=== PATIENT | female | born 1960 | race Caucasian/White ===

== ENCOUNTER 2016-03-07 05:27 | Inpatient (IN) | payer OTHER ==
[2016-02-20 13:13] VITALS: BMI 40.0
--- NOTE | 2016-02-20 13:42 | PAT Medication Instructions ---
Service Date Feb 20, 2016. Current Home Medication List Diclofenac (Voltaren), 50 MG PO BID Fluticasone Propionate (Nasal) (Flonase Allergy Relief), 1 SPRAY ZUNILDA QAM Gabapentin (Neurontin), 300 MG PO TID Ipratropium-Albuterol (Combivent Respimat), 1 PUFFS INH QID Mirtazapine (Remeron), 30 MG PO HS Pantoprazole (Protonix), 40 MG PO QAM Pravastatin (Pravachol ), 20 MG PO QPM Venlafaxine Hcl (Venlafaxine Hcl Er), 1 TAB PO HS Zolpidem Tartrate (Ambien), 10 MG PO HS Medication Instructions For Your Scheduled Surgery - Hold the following medications the morning of surgery: Diclofenac (Voltaren), 50 MG PO BID (otherwise okay to continue per surgeon) - Take the following medications the morning of surgery with a sip of water OTHERWISE NOTHING TO EAT OR DRINK AFTER MIDNIGHT: Fluticasone Propionate (Nasal) (Flonase Allergy Relief), 1 SPRAY ZUNILDA QAM Pantoprazole (Protonix), 40 MG PO QAM Gabapentin (Neurontin), 300 MG PO TID Ipratropium-Albuterol (Combivent Respimat), 1 PUFFS INH QID - Take the following medications as scheduled the night before surgery: Mirtazapine (Remeron), 30 MG PO HS Pravastatin (Pravachol ), 20 MG PO QPM Venlafaxine Hcl (Venlafaxine Hcl Er), 1 TAB PO HS Zolpidem Tartrate (Ambien), 10 MG PO HS Diclofenac (Voltaren), 50 MG PO BID Gabapentin (Neurontin), 300 MG PO TID Ipratropium-Albuterol (Combivent Respimat), 1 PUFFS INH QID If you have any questions please call us at [phone] (Ann Lawson PA-C) or [phone] or [phone]
[2016-02-20 14:28] LABS: BASO % 0.4 %; BASO ABS # 0.05 K/uL (0-0.2); COMPLETE YES; EOS % 2.5 %; HEMATOCRIT 43.6 % (37-47); IG% 0.3 %; LYMPH % 22.1 %; LYMPH ABS # 2.53 K/uL (1.2-3.4); MEAN CELL VOLUME 89.5 fL (80-100); MEAN CORPUSCULAR HEMOGLOBIN 30.2 pg (25-34); MEAN CORPUSCULAR HGB CONC 33.7 g/dl (32-36); MEAN PLATELET VOLUME 9.9 fL (7.4-10.4); MONO % 5.1 %; NEUT % 69.6 %; PLATELET COUNT 325 K/uL (130-400); RED BLOOD COUNT 4.87 M/uL (4.2-5.4); WHITE BLOOD COUNT 11.44 K/uL (4.8-10.8)
--- NOTE | 2016-02-20 14:35 | DIAGNOSTIC IMAGING REPORT ---
CHEST PREADMISSION(PA/LAT) HISTORY: Preop. COMPARISON: None. FINDINGS: The lungs are clear. Cardiac silhouette is normal in size. No pleural effusions. No pneumothorax. IMPRESSION: No acute process. Electronically signed by: Riley Walter M.D. 02/20/2016 2:33 PM
[2016-02-20 14:46] LABS: URINE APPEARANCE CLOUDY (CLEAR); URINE BILIRUBIN NEG (NEG); URINE COLOR DK YELLOW; URINE EPITHELIAL CELL AUTO >30 /lpf (0-5); URINE NITRITE NEG (NEG); URINE SPECIFIC GRAVITY 1.024 (1.000-1.030); UROBILINOGEN NEG (NEG)
[2016-02-20 14:50] LABS: MANUAL MICROSCOPIC REQUIRED? NO; REVIEW REQ? YES
[2016-02-20 15:29] LABS: CALCIUM 9.7 mg/dl (8.5-10.1); CREATININE 0.87 mg/dl (0.60-1.20); POTASSIUM 4.7 mmol/L (3.5-5.1)
[~2016-03-07] VITALS: Ht 157.5 cm; Wt 100.2 kg
[2016-03-07] VITALS (12 sets, daily range): BP systolic 108–145; BP diastolic 69–92; PULSE 83–93; TEMP 36.6–37.1; O2SAT 91–96; Ht 157.5 cm; Wt 100.2 kg
[~2016-03-07 05:27] MED LIST: DICL50TA3 PO; FLUT0.15 NAE; GABA-113 PO; IPRA1AER2 INH; MIRT30TA3 PO; PANT40TA PO; PRAV20TA PO; VENL150T33 PO; ZOLP10TA PO
[2016-03-07] MEDS ORDERED: CEFAZOLIN 2000 MG/60 ML D5W IV SCH (06:00)
[2016-03-07] MEDS ORDERED: LACTATED RINGER'S 1000ML 1,000 ML IV SCH (06:00)
[2016-03-07] MEDS ORDERED: PROPOFOL IV EMULSION 10 MG/ML 20 ML VIAL IV ONE (07:03)
[2016-03-07] MEDS ORDERED: LIDOCAINE HCL 2% 2 ML VIAL (20MG/ML) ONE (07:03)
[2016-03-07] MEDS ORDERED: MIDAZOLAM HCL 1 MG/ML 2ML VIAL ONE (07:03)
[2016-03-07] MEDS ORDERED: EpHEDrine SULFATE INJ 50 MG/ML AMP ONE (07:03)
[2016-03-07] MEDS ORDERED: GLYCOPYRROLATE INJ 0.2 MG/ML VIAL ONE (07:03)
[2016-03-07] MEDS ORDERED: SUCCINYLCHOLINE CHLORIDE 20 MG/ML 10 ML VIAL IV ONE (07:03)
[2016-03-07] MEDS ORDERED: ROCURONIUM BROMIDE 10 MG/ML 5 ML VIAL ONE (07:03)
[2016-03-07] MEDS ORDERED: NEOSTIGMINE METHYLSULFATE 1 MG/ML 10ML VIAL ONE (07:03)
[2016-03-07] MEDS ORDERED: FENTANYL CITRATE INJ 50 MCG/1 ML 2 ML VIAL ONE (07:03)
[2016-03-07] MEDS ORDERED: ONDANSETRON INJ 2 MG/ML 2 ML VIAL ONE (07:03)
[2016-03-07] MEDS ORDERED: DEXAMETHASONE SOD INJ 4 MG/ML VIAL ONE (07:03)
[2016-03-07] MEDS ORDERED: EpHEDrine SULFATE INJ 50 MG/ML AMP IV PRN (07:30)
[2016-03-07] MEDS ORDERED: ATROPINE SULFATE 0.1 MG/ML 5ML SYR IV PRN (07:30)
[2016-03-07] MEDS ORDERED: ONDANSETRON INJ 2 MG/ML 2 ML VIAL IV PRN ×2 (07:30→09:45)
[2016-03-07] MEDS ORDERED: HYDROmorphone INJ 2 MG/ML SYR/VIAL IV PRN (07:30)
[2016-03-07] MEDS ORDERED: PHENYLEPHRINE 100MCG/ML 5ML SYR IV PRN (07:30)
--- NOTE | 2016-03-07 07:33 | History & Physical Bridge Note ---
H&P Re-Evaluation Bridge Note: I have examined the patient, reviewed the History & Physical and in the interval since the performance of the History & Physical I have noted the following changes of clinical significance: No changes noted
--- NOTE | 2016-03-07 07:34 | History and Physical ---
History & Physical Date Mar 07, 2016. Chief Complaint back and leg pain History of Present Illness The patient is a 55 year old female with complaints of Additional History Hepatic Disease: No Endocrine Disorder: No Kidney Disease: No Hypertension: No Heart Disease: No Bleeding Tendencies: No Infectious Diseases: No Allergies Coded Allergies: No Known Allergies (Unverified , 03/07/16) Home Medications Scheduled Diclofenac (Voltaren), 50 MG PO BID Fluticasone Propionate (Nasal) (Flonase Allergy Relief), 1 SPRAY ZUNILDA QAM Gabapentin (Neurontin), 300 MG PO TID Ipratropium-Albuterol (Combivent Respimat), 1 PUFFS INH QID Mirtazapine (Remeron), 30 MG PO HS Pantoprazole (Protonix), 40 MG PO QAM Pravastatin (Pravachol ), 20 MG PO QPM Venlafaxine Hcl (Venlafaxine Hcl Er), 1 TAB PO HS Zolpidem Tartrate (Ambien), 10 MG PO HS Physical Examination Skin: warm/dry, no rash Eyes: normal inspection, EOMI, sclerae normal ENT: normal ENT inspection, pharynx normal Head: normocephalic, atraumatic Neck: supple, no adenopathy, trachea midline Respiratory/Chest: lungs clear, normal breath sounds, no respiratory distress Cardiovascular: regular rate, rhythm, no edema, no murmur Abdomen / GI: normal bowel sounds, non tender Back: normal inspection Extremities: normal inspection, normal range of motion Neurologic/Psych: no motor/sensory deficits, alert, normal reflexes, oriented x 3 Diagnosis spinal stenosis Plan of Treatment decompression fusion L3-S1
[2016-03-07] MEDS ORDERED: HYDROmorphone INJ 2 MG/ML SYR/VIAL ONE (08:14)
[2016-03-07] MEDS ORDERED: BUPIVACAINE/EPINEPHRINE 0.5% MPF 1:200,000 30 ML VIAL INJ ONE (08:21)
[2016-03-07] MEDS ORDERED: PHENYLEPHRINE HCL INJ 10 MG/ML VIAL ONE (09:09)
[2016-03-07] MEDS ORDERED: FLOSEAL HEMOSTATIC MATRIX 10ML TOP ONE (09:33)
[2016-03-07] MEDS ORDERED: BACITRACIN 50000 UNIT VIAL IR ONE (09:33)
[2016-03-07] MEDS ORDERED: SODIUM CHLORIDE 0.9% 1000ML 1,000 ML IV SCH (09:44)
--- NOTE | 2016-03-07 09:44 | [facility] Post Operative Brief Note ---
Immediate Operative Summary Operative Date Mar 07, 2016. Pre-Operative Diagnosis Spinal Stenosis Post-Operative Diagnosis Spinal Stenosis Procedure(s) Performed L3-L5 Lumbar Laminectomy, Decompression; Pedicle Screw Fixation; Placement of Interbody Device L4-L5, Posterolateral Fusion; Application of Kajal and Bone Morphogenetic Protein Surgeon Dr. Holm Heel Scourer Surgeon(s) NOHEMI Bain Estimated Blood Loss 180 ml Findings stenosis Specimens none per surgeon
[2016-03-07] MEDS ORDERED: NALOXONE HCL 0.4 MG/1 ML VIAL/CARP IV PRN ×2 (09:45)
[2016-03-07] MEDS ORDERED: hydrOXYzine HCL 25 MG TAB PO PRN (09:45)
[2016-03-07] MEDS ORDERED: FAMOTIDINE 20 MG TAB PO PRN (09:45)
[2016-03-07] MEDS ORDERED: ACETAMINOPHEN IV 100 ML IV PRN (09:45)
[2016-03-07] MEDS ORDERED: HYDROmorphone HCL 0.5MG/ML 50 ML CASSETTE IV PRN (09:45)
[2016-03-07] MEDS ORDERED: LORAZEPAM INJ 0.5 MG in SYRINGE 0.75 ML IV PRN (09:45)
[2016-03-07] MEDS ORDERED: SOD PHOSPHATE/SOD BIPHOSPHATE ENEMA 132 ML BTL PR PRN (09:45)
[2016-03-07] MEDS ORDERED: PROMETHAZINE HCL INJ 12.5 MG in SODIUM CHLORIDE 0.9% 50ML 50 ML IV PRN (09:45)
[2016-03-07] MEDS ORDERED: BISACODYL 10 MG SUPP PR PRN (09:45)
[2016-03-07] MEDS ORDERED: ACETAMINOPHEN 500 MG TAB PO PRN (09:45)
[2016-03-07] MEDS ORDERED: METOCLOPRAMIDE HCL INJ 5 MG/ML 2 ML VIAL IV PRN (09:45)
[2016-03-07] MEDS ORDERED: DO NOT ADMINISTER PNEUMOCOCCAL VACCINE PRN ×2 (09:45)
[2016-03-07] MEDS ORDERED: MAGNESIUM HYDROXIDE SUSP 30 ML UDC PO PRN (09:45)
[2016-03-07] MEDS ORDERED: ALUMINUM/MAGNESIUM SUSP 30 ML UDC PO PRN (09:45)
[2016-03-07] MEDS ORDERED: DO NOT ADMINISTER FLU VACCINE PRN ×3 (09:45)
--- NOTE | 2016-03-07 09:49 | DIAGNOSTIC IMAGING REPORT ---
INTRAOPERATIVE FLUOROSCOPIC IMAGES OF THE LUMBAR SPINE CLINICAL HISTORY: L3-L5 laminectomy and fusion. COMPARISON STUDY: No previous studies for comparison. FLUOROSCOPY TIME: 18 seconds. FINDINGS: These images demonstrate an L4-L5 discectomy with interbody spacer placement. There is a posterior decompression. Bilateral pedicle screws are noted at the L3, L4 and L5 levels. There are interconnecting rods. IMPRESSION: Expected findings following L4-L5 discectomy and L3-L5 bilateral pedicle screw fusion with decompression. Electronically signed by: Andres Gilmore M.D. 03/07/2016 9:47 AM Dictated Date/Time: 03/07/2016 9:45 AM
[2016-03-07] MEDS ORDERED: HYDROmorphone HCL 0.5MG/ML 50 ML CASSETTE ONE (10:17)
--- NOTE | 2016-03-07 10:47 | OPERATIVE REPORT ---
DATE OF OPERATION: 03/07/2016 PREOPERATIVE DIAGNOSIS: Spinal stenosis. Spondylolisthesis. POSTOPERATIVE DIAGNOSIS: Same. PROCEDURE PERFORMED: 1. Lumbar decompression, medial facetectomy and foraminotomy L2-3, L3-4, L4-5, L5-S1. 2. Posterior spinal fusion L3-L4, L4-L5. 3. Placement posterior instrumentation using Orthros rods and screws and crosslink L3-L4, L4-L5. 4. Interbody fusion L4-L5. 5. Placement of PEEK cage 12 x 22 at L4-L5. 6. Placement of locally harvested morselized autograft posterior gutters. 7. Placement of Infuse collagen sponge combined with Mastergraft in posterior gutters and Kajal bone grafting in the interbody space. SURGEON: Dr. Marty Holm. PROOF COIN COLLECTOR: George Ramos PA-C. Due to the complex nature of the procedure, the entire surgery was performed with the environmental services assistant of NOHEMI Patel. The mortgage assistant, under direct supervision, was involved in the actual performance of all aspects of the surgical procedure including hemostasis, tissue retraction and incision, instrument management, patient positioning, and wound closure. ANESTHESIA: General. DISPOSITION: The patient awakened and taken to PACU in stable condition. HISTORY OF PATIENT'S PROBLEMS: This is a 55-year-old female that presents with above-mentioned diagnosis. After failing an extensive course of nonoperative care, elected to undergo the above-mentioned procedure. Risks, benefits, pros, cons, and alternatives were outlined in detail preoperatively. OPERATION AND FINDINGS: PROCEDURE: The patient was met preoperatively, case discussed and all questions were addressed. At that point the patient was taken back to operative suite and after undergoing successful general intubation by the department of anesthesia was placed in prone position on Víctor table atop Juan M frame. All bony prominences were padded and the eyes were inspected to ensure there was no external pressure placed upon them. At this point, lumbar spine was prepped and draped in normal sterile fashion. Sharp dissection with the assistance of Bovie cautery performed down to and exposing the lamina and transverse processes of L3, L4, L5 bilaterally. From a caudal to cephalad fashion, complete laminectomy of L4, 3 partial laminectomy of L2 was performed at we addressed severe lateral recess stenosis at the 2-3, 3-4 and 4-5 levels. Pedicle screws then placed in L3, L4, L5 bilaterally with assistance of fluoroscopy and appropriate size vandana provisionally placed. Through a transforaminal approach on the right, a complete discectomy of L4-L5 was performed, endplates curetted to subcortical bleeding bone and a 12 x 26 mm PEEK cage filled with Kajal bone grafting tapped into position. The rods were then compressed, locked into final position bilaterally including a crosslink. The transverse processes of 3, 4 and 5 burred to subcortical bleeding bone. Infuse collagen sponge combined with Mastergraft locally harvested morcellized autograft was placed in the posterior gutters. A 7 flat ANNMARIE drain was inserted. Incision was closed with 1-0 Vicryl in the fascia, 2-0 Vicryl subcutaneously, 4-0 Monocryl for final skin closure. Steri-Strips and sterile dressing placed. The patient was awakened and taken to PACU in stable condition. I attest to the content of the Intraoperative Record and any orders documented therein. Any exceptio ns are noted below.
--- NOTE | 2016-03-07 11:06 | Anesthesiology Progress Note ---
Anesthesia Post Op Note Date & Time Mar 07, 2016 at 11:05 Vital Signs Pain Intensity: 2 Vital Signs Past 12 Hours Date Time Temp Pulse Resp B/P Pulse Ox O2 Delivery O2 Flow Rate FiO2 03/07/16 10:51 92 18 96 03/07/16 10:51 93 03/07/16 10:49 149/87 03/07/16 10:46 94 19 03/07/16 10:46 94 19 92 03/07/16 10:45 36.4 03/07/16 10:40 94 20 03/07/16 10:40 94 20 94 03/07/16 10:38 159/91 03/07/16 10:35 92 16 03/07/16 10:35 91 16 93 03/07/16 10:34 169/86 03/07/16 10:30 94 15 94 03/07/16 10:30 93 15 03/07/16 10:28 156/94 03/07/16 10:25 89 16 176/87 95 03/07/16 10:25 89 16 03/07/16 10:22 135/61 03/07/16 10:20 85 11 03/07/16 10:20 85 11 96 03/07/16 10:19 181/106 03/07/16 10:15 88 10 170/97 94 03/07/16 10:15 88 10 03/07/16 10:10 36.5 86 18 170/97 94 Mask 10 03/07/16 06:12 96 Room Air 03/07/16 06:07 36.8 85 18 145/92 Notes Mental Status: alert / awake / arousable, participated in evaluation Pt Amnestic to Procedure: Yes Nausea / Vomiting: adequately controlled Pain: adequately controlled Airway Patency, RR, SpO2: stable & adequate BP & HR: stable & adequate Hydration State: stable & adequate Anesthetic Complications: no major complications apparent
[2016-03-07] MEDS ORDERED: PNEUMOCOCCAL ADMINISTRATION CHARGE ONE (12:45)
[2016-03-07] MEDS ORDERED: INFLUENZA VIRUS QUAD VACCINE 0.5 ML SYR IM. ONE (12:45)
[2016-03-07] MEDS ORDERED: PNEUMOCOCCAL POLYSACCHARIDES 25 MCG/0.5 ML VIAL/SYR IM. ONE (12:45)
[2016-03-07] MEDS ORDERED: INFLUENZA ADMINISTRATION CHARGE ONE (12:45)
[2016-03-07] MEDS: IPRATROPIUM BROMIDE/ALBUTEROL respimat INH INH SCH ×3 (13:00→20:43)
[2016-03-07] MEDS ORDERED: RXC5 PO (13:22)
--- NOTE | 2016-03-07 13:23 | Discharge Instructions ---
Discharge Instructions Admission Reason for Admission: Spinal Stenosis Discharge Discharge Diagnosis / Problem: stenosis Discharge Goals Goal(s): Improve function Activity Recommendations Activity Limitations: per Instructions/Follow-up section . Instructions / Follow-Up Instructions / Follow-Up ACTIVITY RECOMMENDATIONS: SELF CARE INSTRUCTIONS AFTER THORACIC/LUMBAR FUSIONS 1. You may walk to your tolerance. It is good exercise for your legs and back. Expect some back and intermittent leg aches and pains. 2. You may perform "counter-top" level activities (make a sandwich, jackeline with a project, etc.). 3. No bending or lifting of more than 10 pounds or back twisting of any nature (roll like a log when turning in bed). 4. You may ride in a car for 20-30 minutes at a time. No driving until after your first visit with your doctor. 5. Frequent changes of position and restricting sitting to 30 minutes at a time will help limit the amount of back spasms and stiffness you may experience. 6. You may discontinue the use of ambulatory aids (cane, crutches, etc.) once your strength and confidence allow. 7. You may field artillery targeting technician the shower and let water strike your incision when you arrive home at least once daily. Do not take a tub bath, sit in a hot tub or go into a swimming pool until after your first recheck in the office. SPECIAL CARE INSTRUCTIONS: VERY IMPORTANT TO READ AND REVIEW A. Your surgical incision has been closed with a cosmetic suture under the skin that will dissolve in about 6 weeks. In 14 days, you can use a pair of clean scissors and cut the suture that is left outside of the skin at the ends of your incision. 1. The small skin tapes can be removed 7 days after surgery if they have not fallen off by that point. 2. You may keep the wound open to air as much as possible to promote healing after post-op day number 5 unless told otherwise by your doctor. 3. If you think the wound looks like it is becoming infected (redness or worsening drainage) and/or you are experiencing fever, chill or worsening back pain and muscle spasms, contact the office so that we may evaluate you as soon as possible. B. Complications are uncommon, but please contact us if you have any signs or symptoms of: 1. wound infection (fever higher than 102.5 degrees F, redness, separation of wound, drainage, or increasing pain from the incision) 2. blood clots in legs (pain, swelling, redness and warmth in legs) 3. urinary tract infection (fever higher than 102.5 degrees F, burning upon urination or increased frequency of urination) 4. nerve problems (inability to walk on your toes or heels, numbness, loss of bowel or bladder control) 5. any other symptoms that concern you C. Please call the office at if you have any concerns or questions about your operation or recovery. D. No smoking! Smoking drastically decreases the chance of a solid fusion. E. Do not take any anti-inflammatory medications (Indocin, Advil, Motrin, Aspirin, Naprosyn, etc.) as these may inhibit the chance of a solid fusion. Tylenol is okay to take for pain. MANAGING PAIN AFTER SPINAL SURGERY 1. Narcotic medication is intended for short-term use and will be provided for surgical pain. Surgical pain usually lasts for a period of 4-6 weeks. Narcotic medication includes Percocet, Vicodin, Darvocet, Tylenol #3 or Lortab. 2. Longer-term pain is more appropriately treated with non-narcotic medication such as Tylenol ES. 3. Muscle spasm is not appropriately treated with narcotics. Muscle relaxers such as Soma, Flexeril or Skelaxin can be used along with Tylenol ES. 4. Remember that we all live with some "aches and pains". This is not unusual or uncommon after an injury or as we get older. a. Back pain is expected and may include muscle spasms for 4 to 6 weeks after surgery. The pain should gradually improve. If the pain worsens for no apparent reason, please contact the office. b. Intermittent leg pain may also be experienced and should not be concerned about unless it worsens for no apparent reason. If so, please contact the office. 5. We will provide appropriate medication within the normal guidelines of their prescribed use. We will also be very cautious and aware of potential abuse and extended duration of patients' medication needs. a. Pain medications are for your comfort and to assist with sleep and rest so that the tissue can heal. They are not provided in order to return to normal activity and should not be used through the day. To do so or worsening pain at night can result from ongoing tissue damage and development of tolerance to the prescribed medicine. 6. Please allow 2-3 days to process refills. Prescriptions will not be mailed but must be picked up at the office. FOLLOW UP VISIT: Keep your scheduled follow-up appointment. Any questions, please call the office at . Current Hospital Diet Patient's current hospital diet: Regular Diet Discharge Diet Recommended Diet: Regular Diet Procedures Procedures Performed: L3-L5 Lumbar Laminectomy, Decompression; Pedicle Screw Fixation; Placement of Interbody Device L4-L5, Posterolateral Fusion; Application of Kajal and Bone Morphogenetic Protein Pending Studies Studies pending at discharge: no Medical Emergencies . Who to Call and When: Medical Emergencies: If at any time you feel your situation is an emergency, please call 911 immediately. . Non-Emergent Contact Non-Emergency issues call your: Primary Care Provider . "Provider Documentation" section prepared by Marty Holm. VTE Core Measure Inpt VTE Proph given/why not?: Valeriano Rodriguez, SCD's
[2016-03-07] MEDS: GABAPENTIN 300 MG CAP PO SCH ×2 (14:23→20:44)
[2016-03-07] MEDS: CEFAZOLIN IV 2,000 MG in DEXTROSE 5% 50ML 50 ML IV SCH ×2 (17:02→23:33)
[2016-03-07] MEDS: LACTATED RINGER'S 1000ML 1,000 ML IV SCH ×2 (17:03→23:33)
[2016-03-07] MEDS: DEXAMETHASONE INJ 6 MG in SYRINGE 0 ML IV SCH ×2 (17:03→23:33)
[2016-03-07] MEDS: VENLAFAXINE HCL XR 150 MG CAPXR PO SCH (20:44)
[2016-03-07] MEDS: PRAVASTATIN SOD 20 MG TAB PO SCH (20:44)
[2016-03-07] MEDS: DOCUSATE SODIUM/SENNA 50/8.6MG TAB PO SCH (20:44)
[2016-03-07] MEDS: MIRTAZAPINE TAB 15 MG TAB PO SCH (20:44)
[2016-03-07] MEDS: ZOLPIDEM TARTRATE 10 MG TAB PO SCH (20:44)
[2016-03-08] VITALS (8 sets, daily range): BP systolic 112–148; BP diastolic 68–84; PULSE 75–100; TEMP 36.9–37.2; O2SAT 86–97
[2016-03-08] MEDS: IPRATROPIUM BROMIDE/ALBUTEROL respimat INH INH SCH ×5 (01:46→20:46)
[2016-03-08] MEDS ORDERED: SODIUM CHLORIDE 0.65% NA SOLN 45 ML (OCEAN) ONE (02:54)
[2016-03-08] MEDS ORDERED: NURSING DECISION MEDICATION ORDER SCH (05:30)
[2016-03-08] MEDS ORDERED: DC PCA ONE (06:00)
[2016-03-08 06:04] LABS: BASO % 0.1 %; BASO ABS # 0.01 K/uL (0-0.2); COMPLETE YES; IG% 0.4 %; LYMPH % 6.6 %; LYMPH ABS # 1.19 K/uL (1.2-3.4); MEAN CELL VOLUME 89.5 fL (80-100); MEAN CORPUSCULAR HEMOGLOBIN 29.4 pg (25-34); MEAN CORPUSCULAR HGB CONC 32.9 g/dl (32-36); MEAN PLATELET VOLUME 9.6 fL (7.4-10.4); MONO % 5.7 %; NEUT % 87.2 %; PLATELET COUNT 335 K/uL (130-400); RED BLOOD COUNT 3.91 M/uL (4.2-5.4); WHITE BLOOD COUNT 17.98 K/uL (4.8-10.8)
[2016-03-08] MEDS: OXYCODONE HCL IR 5 MG TAB (IMMEDIATE RELEASE) PO PRN ×5 (06:30→22:54)
[2016-03-08 06:36] LABS: BUN/CREATININE RATIO 9.6 (10-20); CALCIUM 8.8 mg/dl (8.5-10.1); CREATININE 0.85 mg/dl (0.60-1.20); POTASSIUM 4.3 mmol/L (3.5-5.1)
[2016-03-08] MEDS ORDERED: ALBUT/IPRATROP 3MG/0.5MG NEB 3 ML VIAL INH SCH (07:30)
[2016-03-08] MEDS: HYDROmorphone INJ 1 MG/ML SYR IV PRN ×4 (07:44→22:10)
[2016-03-08] MEDS: DEXAMETHASONE INJ 6 MG in SYRINGE 0 ML IV SCH (09:15)
[2016-03-08] MEDS: MoRPHine SULFATE CR 15 MG TAB (MS CONTIN) PO SCH ×2 (09:15→20:45)
[2016-03-08] MEDS: GABAPENTIN 300 MG CAP PO SCH ×3 (09:16→20:45)
[2016-03-08] MEDS: PANTOprazole SOD 40 MG TAB PO SCH (09:16)
--- NOTE | 2016-03-08 09:49 | PROGRESS NOTE ---
DATE: 03/08/2016 DATE: 03/08/2016. SUBJECTIVE: Postop day 1. Back pain controlled. Leg pain improved. Vital signs stable. T-max 37.1. ANNMARIE drained 70 mL. Hematocrit this a.m. is 35.0. OBJECTIVE: On exam the patient is in chair at bedside. Demonstrates good strength to testing. Appears comfortable. ASSESSMENT: Status post lumbar decompression and fusion. PLAN: At this time, will initiate physical therapy, advance her bowel regimen and anticipate discharge home Thursday to [facility] if possible.
[2016-03-08] MEDS ORDERED: NURSING VERBAL MED ORDER ONE (13:00)
[2016-03-08] MEDS: NICOTINE 21 MG/24 HR TDSY TD SCH (13:31)
[2016-03-08] MEDS: ALBUT/IPRATROP 3MG/0.5MG NEB 3 ML VIAL INH PRN ×2 (16:12→23:57)
[2016-03-08] MEDS: DOCUSATE SODIUM/SENNA 50/8.6MG TAB PO SCH (20:45)
[2016-03-08] MEDS: PRAVASTATIN SOD 20 MG TAB PO SCH (20:45)
[2016-03-08] MEDS: VENLAFAXINE HCL XR 150 MG CAPXR PO SCH (20:45)
[2016-03-08] MEDS: MIRTAZAPINE TAB 15 MG TAB PO SCH (20:46)
[2016-03-08] MEDS: ZOLPIDEM TARTRATE 10 MG TAB PO SCH (20:48)
[2016-03-08] MEDS: LORAZEPAM 0.5 MG TAB PO PRN (22:53)
[2016-03-09] MEDS: HYDROmorphone INJ 1 MG/ML SYR IV PRN ×4 (02:12→16:08)
[2016-03-09] MEDS: IPRATROPIUM BROMIDE/ALBUTEROL respimat INH INH SCH ×4 (04:55→20:03)
[2016-03-09] MEDS: OXYCODONE HCL IR 5 MG TAB (IMMEDIATE RELEASE) PO PRN ×4 (04:59→23:09)
[2016-03-09] MEDS: POLYETHYLENE (MIRALAX) 17 GM PACK PO SCH ×4 (05:00→23:25)
[2016-03-09 06:30] VITALS: BP 121/68; PULSE 82; TEMP 37.2; O2SAT 91
[2016-03-09] MEDS: PANTOprazole SOD 40 MG TAB PO SCH (07:22)
[2016-03-09] MEDS: NICOTINE 21 MG/24 HR TDSY TD SCH (07:22)
[2016-03-09] MEDS: GABAPENTIN 300 MG CAP PO SCH ×3 (07:22→21:13)
[2016-03-09] MEDS: MoRPHine SULFATE CR 15 MG TAB (MS CONTIN) PO SCH ×2 (07:39→21:12)
[2016-03-09] MEDS: ALBUT/IPRATROP 3MG/0.5MG NEB 3 ML VIAL INH PRN ×3 (07:47→23:00)
[2016-03-09 07:51] VITALS: PULSE 78; O2SAT 92
[2016-03-09] MEDS: LORAZEPAM 0.5 MG TAB PO PRN ×2 (12:50→21:17)
--- NOTE | 2016-03-09 13:14 | PROGRESS NOTE ---
DATE: 03/09/2016 Postop day #2. Back pain is controlled. Leg pain improved. Vital signs stable. T-max 37.2. ANNMARIE drain, 45 mL. On exam, the patient has good strength to testing, appears comfortable. ASSESSMENT: Status post multilevel lumbar decompression and fusion. PLAN: At this time, we will maintain the ANNMARIE drain another day. Continue physical therapy and bowel regimen. Anticipate transfer to [facility] in [place] tomorrow.
[2016-03-09] MEDS: KETOROLAC TROMETHAMINE 30 MG/ML VIAL IV PRN ×2 (13:32→20:05)
[2016-03-09 15:30] VITALS: BP 129/80; PULSE 91; TEMP 36.5; O2SAT 93
[2016-03-09 15:39] VITALS: PULSE 112; O2SAT 92
[2016-03-09] MEDS: HYDROmorphone INJ 0.5 MG/0.5 ML SYR IV PRN (20:05)
[2016-03-09] MEDS: VENLAFAXINE HCL XR 150 MG CAPXR PO SCH (21:12)
[2016-03-09] MEDS: PRAVASTATIN SOD 20 MG TAB PO SCH (21:13)
[2016-03-09] MEDS: DOCUSATE SODIUM/SENNA 50/8.6MG TAB PO SCH (21:14)
[2016-03-09] MEDS: MIRTAZAPINE TAB 15 MG TAB PO SCH (21:14)
[2016-03-09] MEDS: ZOLPIDEM TARTRATE 10 MG TAB PO SCH (21:16)
[2016-03-09 23:00] VITALS: PULSE 89; O2SAT 94
[2016-03-09 23:20] VITALS: BP 123/68; PULSE 96; TEMP 36.9; O2SAT 94
[2016-03-10] MEDS: HYDROmorphone INJ 0.5 MG/0.5 ML SYR IV PRN ×2 (00:38→03:51)
[2016-03-10] MEDS: KETOROLAC TROMETHAMINE 30 MG/ML VIAL IV PRN ×2 (02:30→10:52)
[2016-03-10] MEDS: POLYETHYLENE (MIRALAX) 17 GM PACK PO SCH ×2 (06:55→11:52)
[2016-03-10] MEDS: OXYCODONE HCL IR 5 MG TAB (IMMEDIATE RELEASE) PO PRN (07:27)
[2016-03-10 07:29] VITALS: PULSE 91; O2SAT 91
[2016-03-10] MEDS: ALBUT/IPRATROP 3MG/0.5MG NEB 3 ML VIAL INH PRN (07:29)
[2016-03-10 07:41] VITALS: BP 145/80; PULSE 94; TEMP 37.3; O2SAT 91
--- NOTE | 2016-03-10 08:26 | Anesthesiology Progress Note ---
Anesthesia Post Op Note Date & Time Mar 10, 2016 at 08:26 Vital Signs Vital Signs Past 12 Hours Date Time Temp Pulse Resp B/P Pulse Ox O2 Delivery O2 Flow Rate FiO2 03/10/16 07:41 37.3 94 18 145/80 91 03/10/16 07:36 Room Air 03/10/16 07:29 91 18 91 Room Air 03/09/16 23:25 Room Air 03/09/16 23:20 36.9 96 18 123/68 94 Room Air 03/09/16 23:00 89 18 94 Room Air Notes Mental Status: alert / awake / arousable, participated in evaluation Pt Amnestic to Procedure: Yes Nausea / Vomiting: adequately controlled Pain: adequately controlled Airway Patency, RR, SpO2: stable & adequate BP & HR: stable & adequate Hydration State: stable & adequate Anesthetic Complications: no major complications apparent
[2016-03-10] MEDS: IPRATROPIUM BROMIDE/ALBUTEROL respimat INH INH SCH ×2 (08:43→12:19)
[2016-03-10] MEDS: NICOTINE 21 MG/24 HR TDSY TD SCH (08:44)
[2016-03-10] MEDS: MoRPHine SULFATE CR 15 MG TAB (MS CONTIN) PO SCH (08:44)
[2016-03-10] MEDS: PANTOprazole SOD 40 MG TAB PO SCH (08:44)
[2016-03-10] MEDS: GABAPENTIN 300 MG CAP PO SCH (08:44)
[2016-03-10] MEDS: LORAZEPAM 0.5 MG TAB PO PRN (08:48)
[2016-03-10 10:35] VITALS: BP 145/80; PULSE 94; TEMP 37.3; O2SAT 91
[2016-03-10] MEDS: HYDROmorphone INJ 1 MG/ML SYR IV PRN (10:47)
--- NOTE | 2016-03-10 14:12 | DISCHARGE SUMMARY ---
PRINCIPAL DIAGNOSIS: Spinal stenosis. HOSPITAL COURSE FOLLOWS: On March 10 the patient underwent lumbar decompression and fusion, tolerated this well and taken to the orthopedic floor postoperatively. Postop day #1, she was up and ambulatory, progressed to postop day #2. Postop day #3, she continued to do well. ANNMARIE drain decreased appropriately. Subsequently discharged home. Discharge orders and instructions found on the chart for further review.
== END 2016-03-10 12:40 | DRG 460 ==
LOC: ENRESERVDT → ENRESERVTM → C.ACU 05:27 → C.3E 09:47
PROVIDERS: ADMIT Orthopaedic Surgery Orthopaedic Surgery of the Spine; ATTEND Orthopaedic Surgery Orthopaedic Surgery of the Spine
PROC: 0SG00AJ Fusion of Lumbar Vertebral Joint with Interbody Fusion Device, Posterior Approach, Anterior Column, Open Approach (ICD-10-PCS; principal; 2016-03-07 07:30)
PROC: 0SG1071 Fusion of 2 or more Lumbar Vertebral Joints with Autologous Tissue Substitute, Posterior Approach, Posterior Column, Open Approach (ICD-10-PCS; principal; 2016-03-07 07:30)
PROC: 0ST20ZZ Resection of Lumbar Vertebral Disc, Open Approach (ICD-10-PCS; principal; 2016-03-07 07:30)
PROC: 3E0U0GB Introduction of Recombinant Bone Morphogenetic Protein into Joints, Open Approach (ICD-10-PCS; principal; 2016-03-07 07:30)
PROC: 01NB0ZZ Release Lumbar Nerve, Open Approach (ICD-10-PCS; principal; 2016-03-07 07:30)
DX: M48.06 Spinal stenosis, lumbar region (principal); Z68.41 Body mass index [BMI] 40.0-44.9, adult; M43.16 Spondylolisthesis, lumbar region; J44.9 Chronic obstructive pulmonary disease, unspecified; E78.5 Hyperlipidemia, unspecified; F41.9 Anxiety disorder, unspecified; F32.9 Major depressive disorder, single episode, unspecified; F17.210 Nicotine dependence, cigarettes, uncomplicated; E66.9 Obesity, unspecified; Z96.643 Presence of artificial hip joint, bilateral; Z79.1 Long term (current) use of non-steroidal anti-inflammatories (NSAID); Z79.899 Other long term (current) drug therapy

== ENCOUNTER 2016-03-26 13:49 | Inpatient (IN) | payer OTHER ==
[~2016-03-26] VITALS: Ht 157.5 cm; Wt 91.0 kg
[~2016-03-26 13:49] MED LIST changes: +CEFAZOLIN 1000MG/55 ML D5W IV SCH; -DICL50TA3 PO; +RXC5 PO
[2016-03-26 14:16] VITALS: BP 139/72; PULSE 103; TEMP 37.6; O2SAT 94; Ht 157.5 cm; Wt 91.0 kg
--- NOTE | 2016-03-26 15:23 | History and Physical ---
History & Physical Date Mar 26, 2016. Chief Complaint back and leg pain History of Present Illness The patient is a 55 year old female with complaints of Past Medical/Surgical History Medical Problems: (1) Lumbar stenosis with neurogenic claudication Additional History Hepatic Disease: No Endocrine Disorder: No Kidney Disease: No Hypertension: No Heart Disease: No Bleeding Tendencies: No Infectious Diseases: No Allergies Coded Allergies: No Known Allergies (Unverified , 03/26/16) Home Medications Scheduled Fluticasone Propionate (Nasal) (Flonase Allergy Relief), 1 SPRAY ZUNILDA QAM Gabapentin (Neurontin), 300 MG PO TID Ipratropium-Albuterol (Combivent Respimat), 1 PUFFS INH QID Mirtazapine (Remeron), 30 MG PO HS Pantoprazole (Protonix), 40 MG PO QAM Pravastatin (Pravachol ), 20 MG PO QPM Venlafaxine Hcl (Venlafaxine Hcl Er), 1 TAB PO HS Zolpidem Tartrate (Ambien), 10 MG PO HS Scheduled PRN Oxycodone HCl (Oxycodone HCl), 5-10 MG PO Q4H PRN for Moderate - severe pain Physical Examination Skin: warm/dry, no rash Eyes: normal inspection, EOMI, sclerae normal ENT: normal ENT inspection, pharynx normal Head: normocephalic, atraumatic Neck: supple, no adenopathy, trachea midline Respiratory/Chest: lungs clear, normal breath sounds, no respiratory distress Cardiovascular: regular rate, rhythm, no edema, no murmur Abdomen / GI: normal bowel sounds, non tender Back: normal inspection Extremities: normal inspection, normal range of motion Neurologic/Psych: no motor/sensory deficits, alert, normal reflexes, oriented x 3 Diagnosis migration L4-5 interbody cage due to fracture L5 endplate Plan of Treatment removal interbody cage 4-5
[2016-03-26] MEDS ORDERED: ALBUTEROL 0.083% NEBU SOLN 3 ML VIAL INH STA (15:27)
--- NOTE | 2016-03-26 15:47 | DIAGNOSTIC IMAGING REPORT ---
CHEST ONE VIEW PORTABLE CLINICAL HISTORY: oxygen desaturation dyspnea COMPARISON STUDY: 02/20/2016 FINDINGS: The bones soft tissues and hemidiaphragms are normal. The cardiomediastinal silhouette is normal. The lungs are clear. The pulmonary vasculature is normal. IMPRESSION: Negative chest. Electronically signed by: Tony Morgan M.D. 03/26/2016 3:45 PM Dictated Date/Time: 03/26/2016 3:45 PM
[2016-03-26] MEDS ORDERED: SODIUM CHLORIDE 0.9% PF 50 ML VIAL ONE (15:51)
[2016-03-26] MEDS ORDERED: BACITRACIN 50000 UNIT VIAL ONE (15:51)
[2016-03-26] MEDS ORDERED: BUPIVACAINE/EPINEPHRINE 0.5% MPF 1:200,000 30 ML VIAL ONE (15:51)
[2016-03-26 16:03] LABS: BASO % 0.3 %; BASO ABS # 0.03 K/uL (0-0.2); EOS % 3.6 %; HEMATOCRIT 37.3 % (37-47); LYMPH % 24.3 %; LYMPH ABS # 2.54 K/uL (1.2-3.4); MEAN CELL VOLUME 92.6 fL (80-100); MONO % 6.5 %; NEUT % 63.3 %; PLATELET COUNT 418 K/uL (130-400); RED BLOOD COUNT 4.03 M/uL (4.2-5.4); WHITE BLOOD COUNT 10.45 K/uL (4.8-10.8)
[2016-03-26 16:11] LABS: MEAN CORPUSCULAR HGB CONC 32.4 g/dl (32-36)
[2016-03-26 16:44] LABS: ANISOCYTOSIS PRESENT; COMPLETE YES; POLYCHROMASIA 1+
--- NOTE | 2016-03-26 16:44 | [facility] Operative Report ---
Operative Report Operative Date Mar 26, 2016. Pre-Operative Diagnosis migration of L4-L5 interbody cage due to fracture of L5 endplate Surgeon Dr. Rebecca Holm Fish Net Stringer Surgeon(s) Lailta Beckham PA-C Estimated Blood Loss 20 Findings fx pedicle Specimens A. explanted hardware, L4-L5 I attest to the content of the Intraoperative Record and any orders documented therein. Any exceptions are noted below.
[2016-03-26] MEDS ORDERED: HYDROmorphone INJ 1 MG/ML SYR IV PRN (16:45)
[2016-03-26] MEDS ORDERED: NALOXONE HCL 0.4 MG/1 ML VIAL/CARP IV PRN ×2 (16:45→17:15)
[2016-03-26] MEDS ORDERED: PROMETHAZINE HCL INJ 12.5 MG in SODIUM CHLORIDE 0.9% 50ML 50 ML IV PRN ×2 (16:45→17:15)
[2016-03-26] MEDS ORDERED: SOD PHOSPHATE/SOD BIPHOSPHATE ENEMA 132 ML BTL PR PRN (16:45)
[2016-03-26] MEDS ORDERED: DO NOT ADMINISTER FLU VACCINE PRN ×3 (16:45)
[2016-03-26] MEDS ORDERED: ALUMINUM/MAGNESIUM SUSP 30 ML UDC PO PRN (16:45)
[2016-03-26] MEDS ORDERED: METOCLOPRAMIDE HCL INJ 5 MG/ML 2 ML VIAL IV PRN (16:45)
[2016-03-26] MEDS ORDERED: LORAZEPAM 0.5 MG TAB PO PRN (16:45)
[2016-03-26] MEDS ORDERED: ACETAMINOPHEN 500 MG TAB PO PRN (16:45)
[2016-03-26] MEDS ORDERED: FAMOTIDINE 20 MG TAB PO PRN (16:45)
[2016-03-26] MEDS ORDERED: ONDANSETRON INJ 2 MG/ML 2 ML VIAL IV PRN ×2 (16:45→17:15)
[2016-03-26] MEDS ORDERED: BISACODYL 10 MG SUPP PR PRN (16:45)
[2016-03-26] MEDS ORDERED: LORAZEPAM INJ 0.5 MG in SYRINGE 0 ML IV PRN (16:45)
[2016-03-26] MEDS ORDERED: DO NOT ADMINISTER PNEUMOCOCCAL VACCINE PRN ×2 (16:45)
[2016-03-26] MEDS ORDERED: hydrOXYzine HCL 25 MG TAB PO PRN (16:45)
[2016-03-26] MEDS ORDERED: MAGNESIUM HYDROXIDE SUSP 30 ML UDC PO PRN (16:45)
[2016-03-26] MEDS: IPRATROPIUM BROMIDE/ALBUTEROL respimat INH INH SCH ×2 (17:00→21:00)
[2016-03-26] MEDS ORDERED: LABETALOL HCL IV 5 MG/ML 20ML IV PRN (17:15)
[2016-03-26] MEDS ORDERED: ALBUTEROL 0.083% NEBU SOLN 3 ML VIAL INH PRN (17:15)
[2016-03-26] MEDS ORDERED: FLUMAZENIL 0.1 MG/1 ML 10 ML VIAL IV PRN (17:15)
[2016-03-26] MEDS ORDERED: ATROPINE SULFATE 0.1 MG/ML 5ML SYR IV PRN (17:15)
[2016-03-26] MEDS ORDERED: EpHEDrine SULFATE INJ 50 MG/ML AMP IV PRN (17:15)
[2016-03-26] MEDS: HYDROmorphone INJ 1 MG/ML SYR IV PRN ×5 (17:30→18:12)
--- NOTE | 2016-03-26 17:35 | OPERATIVE REPORT ---
DATE OF OPERATION: 03/26/2016 PREOPERATIVE DIAGNOSIS: Superior endplate fracture migration of instrumentation L4-L5. POSTOPERATIVE DIAGNOSES: Same with right L5 pedicle fracture. PROCEDURE PERFORMED: 1. Revision decompression L4-L5 neural foramen with removal of bony fragments. 2. Removal of interbody cage, L4-L5. 3. Placement of posterior crosslink at L4-L5. SURGEON: Dr. Marty Holm. TEST HOLE DRILLER: Due to the complex nature of the procedure, the entire surgery was performed with the housing assistant property manager of Margie Beckham PA-C. The assistant director of financial aid, under direct supervision, was involved in the actual performance of all aspects of the surgical procedure including hemostasis, tissue retraction and incision, instrument management, patient positioning, and wound closure. ANESTHESIA: General. DISPOSITION: The patient awakened and taken to PACU in stable condition. HISTORY OF PATIENT'S PROBLEMS: This is a 55-year-old female that presents with above-mentioned diagnosis. After a marked decline in status, we elected to undergo removal of implant, exploration of fusion and decompression. Risks, benefits, pros, cons, and alternatives were outlined in detail preoperatively. DESCRIPTION OF PROCEDURE: The patient was met with preoperatively, the case discussed and all questions were addressed. At that point the patient was taken back to operative suite and after undergoing successful general intubation by the department of anesthesia was placed in prone position on Víctor table atop Juan M frame. All bony prominences were well padded and the eyes were inspected to ensure there was no external pressure placed upon them. At this point, the lumbar spine was prepped and draped in normal sterile fashion. Utilizing the previous incision site, sharp dissection with the assistance of Bovie cautery performed down to and exposing the instrumentation at the L3-L4, L4-L5 level bilaterally. I then was able to explore the exiting L5 nerve root on the right. We did note migration of the interbody posteriorly. This was removed in its entirety. Upon exploration of foramina, we noted evidence of a nonhealing superior endplate fracture but the fracture migrating into the superior aspect of the L5 pedicle. Several fragments were within the foramina. They were removed in their entirety and revised the foraminotomy to completely decompress the exiting L5 nerve root. A crosslink was then added to stabilize the construct. Incision was then copiously irrigated. A 7 flat ANNMARIE drain inserted and closed with 1-0 Vicryl in the fascia, 2-0 Vicryl subcutaneously, 4-0 Monocryl for final skin closure. Steri-Strips and sterile dressing placed. The patient was awakened and taken to PACU in stable condition. I attest to the content of the Intraoperative Record and any orders documented therein. Any exceptio ns are noted below.
[2016-03-26 17:53] LABS: HEMATOCRIT 36.3 % (37-47)
--- NOTE | 2016-03-26 18:21 | Anesthesiology Progress Note ---
Anesthesia Post Op Note Date & Time Mar 26, 2016 at 18:21 Vital Signs Pain Intensity: 6.0 Vital Signs Past 12 Hours Date Time Temp Pulse Resp B/P Pulse Ox O2 Delivery O2 Flow Rate FiO2 03/26/16 18:15 85 16 03/26/16 18:15 85 16 94 03/26/16 18:13 134/86 03/26/16 18:10 85 16 97 03/26/16 18:10 85 16 03/26/16 18:08 138/71 03/26/16 18:05 82 16 96 03/26/16 18:05 82 16 03/26/16 18:03 132/74 03/26/16 18:00 83 15 03/26/16 18:00 82 15 92 03/26/16 17:59 83 16 03/26/16 17:59 83 16 92 03/26/16 17:58 145/95 03/26/16 17:54 85 17 03/26/16 17:54 86 17 92 03/26/16 17:53 126/75 03/26/16 17:49 88 16 92 03/26/16 17:49 88 16 03/26/16 17:48 141/79 03/26/16 17:44 19 03/26/16 17:44 92 19 03/26/16 17:43 158/82 03/26/16 17:40 131/97 03/26/16 17:39 95 17 03/26/16 17:39 95 17 100 03/26/16 17:34 90 23 100 03/26/16 17:34 91 23 03/26/16 17:33 158/98 03/26/16 17:31 95 16 100 03/26/16 17:31 96 16 03/26/16 17:26 98 17 03/26/16 17:26 98 17 100 03/26/16 17:24 162/75 03/26/16 17:21 95 15 100 03/26/16 17:21 95 15 03/26/16 17:18 157/86 03/26/16 17:16 37.4 104 16 172/99 100 Mask 10 03/26/16 17:16 93 15 100 03/26/16 17:16 93 15 03/26/16 14:16 37.6 103 18 139/72 94 Nasal Cannula 2 Notes Mental Status: alert / awake / arousable, participated in evaluation Pt Amnestic to Procedure: Yes Nausea / Vomiting: adequately controlled Pain: adequately controlled Airway Patency, RR, SpO2: stable & adequate BP & HR: stable & adequate Hydration State: stable & adequate Anesthetic Complications: no major complications apparent
[2016-03-26 19:52] VITALS: BP 120/77; PULSE 90; TEMP 37.2; O2SAT 98
[2016-03-26] MEDS: OXYCODONE HCL IR 5 MG TAB (IMMEDIATE RELEASE) PO PRN (19:55)
[2016-03-26] MEDS: LACTATED RINGER'S 1000ML 1,000 ML IV SCH (19:58)
[2016-03-26 20:00] VITALS: O2SAT 96
--- NOTE | 2016-03-26 20:19 | DIAGNOSTIC IMAGING REPORT ---
INTRAOPERATIVE LUMBAR SPINE 2 VIEWS CLINICAL HISTORY: HARDWARE REMOVAL COMPARISON STUDY: No previous studies for comparison. FINDINGS: 7 seconds of fluoroscopic time was utilized. 2 intraoperative fluoroscopic spot images demonstrate pedicle screws and adjoining spinal rods at the L3, L4, and L5 levels. IMPRESSION: Intraoperative fluoroscopic spot images as described above Electronically signed by: Prabhjot Babcock M.D. 03/26/2016 8:18 PM Dictated Date/Time: 03/26/2016 8:17 PM
[2016-03-26] MEDS: DEXAMETHASONE INJ 6 MG in SYRINGE 0 ML IV SCH (20:41)
[2016-03-26] MEDS: VENLAFAXINE HCL XR 150 MG CAPXR PO SCH (20:44)
[2016-03-26] MEDS: MIRTAZAPINE TAB 15 MG TAB PO SCH (20:45)
[2016-03-26] MEDS: GABAPENTIN 300 MG CAP PO SCH (20:45)
[2016-03-26] MEDS: PRAVASTATIN SOD 20 MG TAB PO SCH (20:46)
[2016-03-26] MEDS: DOCUSATE SODIUM/SENNA 50/8.6MG TAB PO SCH (20:47)
[2016-03-26] MEDS: ZOLPIDEM TARTRATE 10 MG TAB PO SCH (20:50)
[2016-03-26] MEDS: ACETAMINOPHEN IV 100 ML IV PRN (20:51)
[2016-03-26 21:02] VITALS: BP 101/61; PULSE 91; TEMP 37.2; O2SAT 93
[2016-03-26 22:14] VITALS: BP 97/60; PULSE 89; TEMP 37.1; O2SAT 95
[2016-03-26] MEDS: CEFAZOLIN IV 2,000 MG in DEXTROSE 5% 50ML 50 ML IV SCH (23:32)
[2016-03-26 23:41] VITALS: BP 131/79; PULSE 99; TEMP 36.9; O2SAT 95
[2016-03-27] VITALS (7 sets, daily range): BP systolic 107–149; BP diastolic 64–77; PULSE 84–99; TEMP 36.7–37.2; O2SAT 91–97
[2016-03-27] MEDS: DEXAMETHASONE INJ 6 MG in SYRINGE 0 ML IV SCH ×2 (03:47→11:59)
[2016-03-27] MEDS: LACTATED RINGER'S 1000ML 1,000 ML IV SCH ×3 (03:48→16:04)
[2016-03-27] MEDS: OXYCODONE HCL IR 5 MG TAB (IMMEDIATE RELEASE) PO PRN ×3 (05:47→18:35)
[2016-03-27 06:56] LABS: BASO % 0.1 %; BASO ABS # 0.01 K/uL (0-0.2); COMPLETE YES; HEMATOCRIT 33.8 % (37-47); IG% 1.4 %; LYMPH % 9.6 %; LYMPH ABS # 1.09 K/uL (1.2-3.4); MEAN CELL VOLUME 93.1 fL (80-100); MEAN CORPUSCULAR HEMOGLOBIN 28.9 pg (25-34); MEAN CORPUSCULAR HGB CONC 31.1 g/dl (32-36); MEAN PLATELET VOLUME 9.1 fL (7.4-10.4); MONO % 1.5 %; NEUT % 87.4 %; PLATELET COUNT 402 K/uL (130-400); RED BLOOD COUNT 3.63 M/uL (4.2-5.4); WHITE BLOOD COUNT 11.41 K/uL (4.8-10.8)
[2016-03-27 07:18] LABS: BUN/CREATININE RATIO 10.5 (10-20); CALCIUM 8.7 mg/dl (8.5-10.1); CREATININE 0.85 mg/dl (0.60-1.20); POTASSIUM 4.2 mmol/L (3.5-5.1)
[2016-03-27] MEDS: ACETAMINOPHEN IV 100 ML IV PRN ×2 (07:59→21:36)
[2016-03-27] MEDS: CEFAZOLIN IV 2,000 MG in DEXTROSE 5% 50ML 50 ML IV SCH (07:59)
--- NOTE | 2016-03-27 08:49 | PROGRESS NOTE ---
DATE: 03/27/2016 Postop day 1. Back pain is controlled. Leg pain improved. Vital signs stable. T-max 37.1. ANNMARIE drained 60 mL. Hematocrit this a.m. 33.8. PHYSICAL EXAMINATION: She has good strength to testing. ASSESSMENT: Status post revision decompression, removal of hardware. PLAN: At this time, we will obtain standing x-rays today, initiate physical therapy and hopefully discharge home this weekend with home health.
[2016-03-27] MEDS: IPRATROPIUM BROMIDE/ALBUTEROL respimat INH INH SCH ×4 (09:24→21:25)
--- NOTE | 2016-03-27 09:24 | DIAGNOSTIC IMAGING REPORT ---
LUMBAR SPINE 2 OR 3 VIEWS CLINICAL HISTORY: Postop lumbar surgery. COMPARISON STUDY: 03/26/2016 FINDINGS: There are postsurgical changes of pedicle screw fixation at the L3, L4, and L5 levels. No acute fractures are visualized. There is a posterior surgical drain present. There is minimal anterolisthesis of L3 on L4. There is a thoracolumbar scoliosis. There are surgical clips within the right abdomen. Please note that there is a transitional vertebra present. Accurate numbering is not possible without entire spine series. For the purpose of this study, I assume that the T12 ribs are hypoplastic IMPRESSION: 1. Transitional vertebra, affecting the numbering scheme. For the purposes of this study, I assume the T12 ribs are hypoplastic. 2. Post surgical changes with posterior spinal fusion. 3. There is minimal anterolisthesis of L3 on L4. Electronically signed by: Prabhjot Babcock M.D. 03/27/2016 9:23 AM Dictated Date/Time: 03/27/2016 9:16 AM
[2016-03-27] MEDS: FLUTICASONE PROPIONATE NA SPR 16 GM BTL NAE SCH (09:25)
[2016-03-27] MEDS: GABAPENTIN 300 MG CAP PO SCH ×3 (09:25→21:28)
[2016-03-27] MEDS: PANTOprazole SOD 40 MG TAB PO SCH (09:26)
[2016-03-27] MEDS: DOCUSATE SODIUM/SENNA 50/8.6MG TAB PO SCH (21:00)
[2016-03-27] MEDS: VENLAFAXINE HCL XR 150 MG CAPXR PO SCH (21:26)
[2016-03-27] MEDS: MIRTAZAPINE TAB 15 MG TAB PO SCH (21:27)
[2016-03-27] MEDS: PRAVASTATIN SOD 20 MG TAB PO SCH (21:28)
[2016-03-27] MEDS: ZOLPIDEM TARTRATE 10 MG TAB PO SCH (21:35)
[2016-03-27] MEDS ORDERED: NURSING VERBAL MED ORDER ONE (23:30)
[2016-03-28] MEDS ORDERED: POLYETHYLENE (MIRALAX) 17 GM PACK PO SCH (06:00)
[2016-03-28] MEDS ORDERED: NURSING VERBAL MED ORDER ONE (06:30)
[2016-03-28 06:51] VITALS: BP 117/71; PULSE 73; TEMP 37.2; O2SAT 93
[2016-03-28] MEDS: FLUTICASONE PROPIONATE NA SPR 16 GM BTL NAE SCH (08:40)
[2016-03-28] MEDS: IPRATROPIUM BROMIDE/ALBUTEROL respimat INH INH SCH ×4 (08:40→21:26)
[2016-03-28] MEDS: PANTOprazole SOD 40 MG TAB PO SCH (08:42)
[2016-03-28] MEDS: GABAPENTIN 300 MG CAP PO SCH ×3 (08:42→21:26)
[2016-03-28] MEDS ORDERED: RXC5 PO (10:22)
--- NOTE | 2016-03-28 10:22 | Discharge Instructions ---
Discharge Instructions Admission Reason for Admission: Lumbar Radiculitis Discharge Discharge Diagnosis / Problem: stenosis Discharge Goals Goal(s): Improve function Activity Recommendations Activity Limitations: per Instructions/Follow-up section . Instructions / Follow-Up Instructions / Follow-Up ACTIVITY RECOMMENDATIONS: SELF CARE INSTRUCTIONS AFTER THORACIC/LUMBAR FUSIONS 1. You may walk to your tolerance. It is good exercise for your legs and back. Expect some back and intermittent leg aches and pains. 2. You may perform "counter-top" level activities (make a sandwich, jackeline with a project, etc.). 3. No bending or lifting of more than 10 pounds or back twisting of any nature (roll like a log when turning in bed). 4. You may ride in a car for 20-30 minutes at a time. No driving until after your first visit with your doctor. 5. Frequent changes of position and restricting sitting to 30 minutes at a time will help limit the amount of back spasms and stiffness you may experience. 6. You may discontinue the use of ambulatory aids (cane, crutches, etc.) once your strength and confidence allow. 7. You may industrial trainer the shower and let water strike your incision when you arrive home at least once daily. Do not take a tub bath, sit in a hot tub or go into a swimming pool until after your first recheck in the office. SPECIAL CARE INSTRUCTIONS: VERY IMPORTANT TO READ AND REVIEW A. Your surgical incision has been closed with a cosmetic suture under the skin that will dissolve in about 6 weeks. In 14 days, you can use a pair of clean scissors and cut the suture that is left outside of the skin at the ends of your incision. 1. The small skin tapes can be removed 7 days after surgery if they have not fallen off by that point. 2. You may keep the wound open to air as much as possible to promote healing after post-op day number 5 unless told otherwise by your doctor. 3. If you think the wound looks like it is becoming infected (redness or worsening drainage) and/or you are experiencing fever, chill or worsening back pain and muscle spasms, contact the office so that we may evaluate you as soon as possible. B. Complications are uncommon, but please contact us if you have any signs or symptoms of: 1. wound infection (fever higher than 102.5 degrees F, redness, separation of wound, drainage, or increasing pain from the incision) 2. blood clots in legs (pain, swelling, redness and warmth in legs) 3. urinary tract infection (fever higher than 102.5 degrees F, burning upon urination or increased frequency of urination) 4. nerve problems (inability to walk on your toes or heels, numbness, loss of bowel or bladder control) 5. any other symptoms that concern you C. Please call the office at if you have any concerns or questions about your operation or recovery. D. No smoking! Smoking drastically decreases the chance of a solid fusion. E. Do not take any anti-inflammatory medications (Indocin, Advil, Motrin, Aspirin, Naprosyn, etc.) as these may inhibit the chance of a solid fusion. Tylenol is okay to take for pain. MANAGING PAIN AFTER SPINAL SURGERY 1. Narcotic medication is intended for short-term use and will be provided for surgical pain. Surgical pain usually lasts for a period of 4-6 weeks. Narcotic medication includes Percocet, Vicodin, Darvocet, Tylenol #3 or Lortab. 2. Longer-term pain is more appropriately treated with non-narcotic medication such as Tylenol ES. 3. Muscle spasm is not appropriately treated with narcotics. Muscle relaxers such as Soma, Flexeril or Skelaxin can be used along with Tylenol ES. 4. Remember that we all live with some "aches and pains". This is not unusual or uncommon after an injury or as we get older. a. Back pain is expected and may include muscle spasms for 4 to 6 weeks after surgery. The pain should gradually improve. If the pain worsens for no apparent reason, please contact the office. b. Intermittent leg pain may also be experienced and should not be concerned about unless it worsens for no apparent reason. If so, please contact the office. 5. We will provide appropriate medication within the normal guidelines of their prescribed use. We will also be very cautious and aware of potential abuse and extended duration of patients' medication needs. a. Pain medications are for your comfort and to assist with sleep and rest so that the tissue can heal. They are not provided in order to return to normal activity and should not be used through the day. To do so or worsening pain at night can result from ongoing tissue damage and development of tolerance to the prescribed medicine. 6. Please allow 2-3 days to process refills. Prescriptions will not be mailed but must be picked up at the office. FOLLOW UP VISIT: Keep your scheduled follow-up appointment. Any questions, please call the office at . Current Hospital Diet Patient's current hospital diet: Regular Diet Discharge Diet Recommended Diet: Regular Diet Procedures Procedures Performed: Decompression L-4-L5, with hardware (cage) removal at L4-L5, placement of additional hardware Pending Studies Studies pending at discharge: no Medical Emergencies . Who to Call and When: Medical Emergencies: If at any time you feel your situation is an emergency, please call 911 immediately. . Non-Emergent Contact Non-Emergency issues call your: Primary Care Provider . "Provider Documentation" section prepared by Marty Holm. VTE Core Measure Inpt VTE Proph given/why not?: Valeriano Rodriguez, SCD's
[2016-03-28] MEDS: OXYCODONE HCL IR 5 MG TAB (IMMEDIATE RELEASE) PO PRN ×2 (10:25→16:43)
--- NOTE | 2016-03-28 10:47 | PROGRESS NOTE ---
DATE: 03/28/2016 Postop day 2. Back pain is controlled. Leg pain markedly improved. Vital signs stable. T-max 37.2. ANNMARIE drain down to 10 mL, hematocrit stable. On exam, she has good strength to testing. Appears comfortable. ASSESSMENT: Status post lumbar decompression and fusion. PLAN: At this time will continue physical therapy today. Looking into getting her to go to ____ either today or tomorrow.
[2016-03-28] MEDS: ACETAMINOPHEN IV 100 ML IV PRN (13:24)
[2016-03-28 15:20] VITALS: BP 125/76; PULSE 81; TEMP 37.7; O2SAT 96
[2016-03-28] MEDS: VENLAFAXINE HCL XR 150 MG CAPXR PO SCH (21:26)
[2016-03-28] MEDS: MIRTAZAPINE TAB 15 MG TAB PO SCH (21:26)
[2016-03-28] MEDS: ZOLPIDEM TARTRATE 10 MG TAB PO SCH (21:26)
[2016-03-28] MEDS: PRAVASTATIN SOD 20 MG TAB PO SCH (21:26)
[2016-03-28] MEDS: DOCUSATE SODIUM/SENNA 50/8.6MG TAB PO SCH (21:30)
[2016-03-28 23:14] VITALS: BP 136/78; PULSE 78; TEMP 37.4; O2SAT 94
[2016-03-29] MEDS: OXYCODONE HCL IR 5 MG TAB (IMMEDIATE RELEASE) PO PRN ×3 (00:15→13:35)
[2016-03-29 07:30] VITALS: BP 140/78; PULSE 80; TEMP 37; O2SAT 96
[2016-03-29 09:07] VITALS: O2SAT 96
[2016-03-29] MEDS: IPRATROPIUM BROMIDE/ALBUTEROL respimat INH INH SCH ×2 (09:12→13:31)
[2016-03-29] MEDS: FLUTICASONE PROPIONATE NA SPR 16 GM BTL NAE SCH (09:12)
[2016-03-29] MEDS: GABAPENTIN 300 MG CAP PO SCH ×2 (09:12→13:31)
[2016-03-29] MEDS: PANTOprazole SOD 40 MG TAB PO SCH (09:13)
--- NOTE | 2016-03-29 10:59 | DISCHARGE SUMMARY ---
DATE OF DISCHARGE: 03/29/2016. PRINCIPAL DIAGNOSIS: Failed instrumentation fracture L5. HOSPITAL COURSE FOLLOWS: On 03/26/2016 the patient was admitted to the hospital and underwent revision decompression, removal instrumentation lumbar spine, tolerated this well and taken to the orthopedic floor postoperatively. Postop day #1 leg symptoms were remarkably improved. She progressed appropriately with therapy. ANNMARIE drain decreased nicely. Subsequently, on 03/29/2016 discharged to a nursing facility. Discharge orders and instructions can be found on the chart for further review.
[2016-03-29 11:28] VITALS: BP 140/78; PULSE 80; TEMP 37; O2SAT 96
[2016-03-29 11:55] VITALS: BP 120/62; PULSE 76; TEMP 36.9; O2SAT 97
== END 2016-03-29 14:16 | disposition home health service (06) | DRG 518 ==
LOC: ENRESERVTM → ENRESERVDT → C.ACU 13:49 → C.MSW 16:47
PROVIDERS: ADMIT Orthopaedic Surgery Orthopaedic Surgery of the Spine; ATTEND Orthopaedic Surgery Orthopaedic Surgery of the Spine
PROC: 0SH00BZ Insertion of Interspinous Process Spinal Stabilization Device into Lumbar Vertebral Joint, Open Approach (ICD-10-PCS; principal; 2016-03-26 10:30)
PROC: 0SP00AZ Removal of Interbody Fusion Device from Lumbar Vertebral Joint, Open Approach (ICD-10-PCS; principal; 2016-03-26 10:30)
PROC: 0QN00ZZ Release Lumbar Vertebra, Open Approach (ICD-10-PCS; principal; 2016-03-26 10:30)
DX: T84.226A Displacement of internal fixation device of vertebrae, initial encounter (principal); S32.059G Unspecified fracture of fifth lumbar vertebra, subsequent encounter for fracture with delayed healing; M96.69 Fracture of other bone following insertion of orthopedic implant, joint prosthesis, or bone plate; M48.06 Spinal stenosis, lumbar region; J44.9 Chronic obstructive pulmonary disease, unspecified; K21.9 Gastro-esophageal reflux disease without esophagitis; E66.9 Obesity, unspecified; E78.00 Pure hypercholesterolemia, unspecified; F17.200 Nicotine dependence, unspecified, uncomplicated; Z79.899 Other long term (current) drug therapy; Z68.36 Body mass index [BMI] 36.0-36.9, adult; X58.XXXA Exposure to other specified factors, initial encounter; Y99.8 Other external cause status; Y83.1 Surgical operation with implant of artificial internal device as the cause of abnormal reaction of the patient, or of later complication, without mention of misadventure at the time of the procedure

== ENCOUNTER 2017-09-28 08:31 | Inpatient (IN) | payer OTHER ==
[2017-07-30 08:00] VITALS: BMI 40.0
[2017-09-08 11:39] VITALS: BMI 40.0
[2017-09-28] VITALS (7 sets, daily range): BP systolic 91–129; BP diastolic 62–93; PULSE 74–94; TEMP 36.5–37; O2SAT 91–95; Ht 157.5 cm; Wt 100.0 kg
[~2017-09-28] VITALS: Ht 157.5 cm; Wt 100.0 kg
[~2017-09-28 08:31] MED LIST changes: +ACET-1256 PO; +ACETAMINOPHEN 500 MG TAB PO SCH; +ASPI81TA28 PO; -CEFAZOLIN 1000MG/55 ML D5W IV SCH; +CEFAZOLIN 2000MG IV PUSH 15 ML IV SCH; +CeleBREX 200 MG CAP PO SCH; -GABA-113 PO; +GABAPENTIN 600 MG PO SCH; +LACTATED RINGER'S 1000ML 1,000 ML IV SCH; +MIRT15TA PO; -MIRT30TA3 PO; +OXAZ10CA25 PO; -PRAV20TA PO; +PRVC/10 PO; -RXC5 PO; +TRAZ1TAB52 PO; +VST25HP PO; -ZOLP10TA PO
[2017-09-28] MEDS ORDERED: HYDROmorphone INJ 1 MG/ML SYR IV PRN (10:30)
[2017-09-28] MEDS ORDERED: FENTANYL CITRATE INJ 50 MCG/1 ML 2 ML VIAL IV PRN (10:30)
[2017-09-28] MEDS ORDERED: PROMETHAZINE HCL INJ 6.25 MG in SODIUM CHLORIDE 0.9% 50ML 50 ML IV PRN (10:30)
[2017-09-28] MEDS ORDERED: ONDANSETRON INJ 2 MG/ML 2 ML VIAL IV PRN ×2 (10:30→15:15)
[2017-09-28] MEDS ORDERED: EpHEDrine SULFATE INJ 50 MG/ML AMP IV PRN (10:30)
[2017-09-28] MEDS ORDERED: ATROPINE SULFATE 0.1 MG/ML 5ML SYR IV PRN (10:30)
[2017-09-28] MEDS ORDERED: MIDAZOLAM HCL 1 MG/ML 2ML VIAL ONE (11:21)
[2017-09-28] MEDS ORDERED: FENTANYL CITRATE INJ 50 MCG/1 ML 2 ML VIAL ONE ×3 (11:21→15:34)
--- NOTE | 2017-09-28 12:02 | History and Physical ---
History & Physical Date Sep 28, 2017. Chief Complaint Back and leg pain History of Present Illness The patient is a 56 year old female with complaints of back and leg pain Past Medical/Surgical History Medical Problems: (1) Closed L5 vertebral fracture (2) Lumbar stenosis with neurogenic claudication Additional History Hepatic Disease: No Endocrine Disorder: No Kidney Disease: No Hypertension: No Heart Disease: No Bleeding Tendencies: No Infectious Diseases: No Other: Morbid obesity Allergies Coded Allergies: No Known Allergies (Verified , 09/28/17) Home Medications Scheduled Aspirin (Aspirin Ec), 81 MG PO QAM Fluticasone Propionate (Nasal) (Flonase Allergy Relief), 1 SPRAY ZUNILDA QAM Hydroxyzine HCl (Hydroxyzine Pamoate), 25 MG PO TID Ipratropium-Albuterol (Combivent Respimat), 1 PUFFS INH QID Mirtazapine (Remeron), 15 MG PO HS Pantoprazole (Protonix), 40 MG PO QAM Pravastatin Sod (Pravastatin Sodium), 10 MG PO QPM Trazodone Hcl (Desyrel), 150 MG PO HS Venlafaxine Hcl (Venlafaxine Hcl Er), 150 MG PO HS Scheduled PRN Acetaminophen (Tylenol), 2 TAB PO Q6 PRN for Pain or Fever Oxazepam (Serax), 10 MG PO HS PRN for Sleep Physical Examination Skin: warm/dry, no rash Eyes: normal inspection, EOMI, sclerae normal ENT: normal ENT inspection, pharynx normal Head: normocephalic, atraumatic Neck: supple, no adenopathy, trachea midline Respiratory/Chest: lungs clear, normal breath sounds, no respiratory distress Cardiovascular: regular rate, rhythm, no edema, no murmur Abdomen / GI: normal bowel sounds, non tender Back: normal inspection Extremities: normal inspection, normal range of motion Neurologic/Psych: no motor/sensory deficits, alert, normal reflexes, oriented x 3 Diagnosis Lumbar spinal stenosis with neurogenic claudication Plan of Treatment Decompression and fusion L2-3 removal of instrumentation L3-4 L4-5
[2017-09-28] MEDS ORDERED: SODIUM CHLORIDE 0.9% PF 50 ML VIAL ONE (12:32)
[2017-09-28] MEDS ORDERED: BACITRACIN 50000 UNIT VIAL ONE (12:32)
[2017-09-28] MEDS ORDERED: BUPIVACAINE LIPOSOME 1/3% 266 MG/20 ML VIAL ONE (12:32)
[2017-09-28] MEDS ORDERED: BUPIVACAINE/EPINEPHRINE 0.5% MPF 1:200,000 30 ML VIAL ONE (12:33)
[2017-09-28] MEDS ORDERED: HYDROmorphone INJ 2 MG/ML SYR/VIAL ONE ×2 (12:42→13:12)
[2017-09-28] MEDS ORDERED: BUPIVACAINE 0.5 % 5 MG/1 ML PF 10ML VIAL ONE (13:14)
[2017-09-28] MEDS ORDERED: EpHEDrine SULFATE 50MG/5ML SYR ONE (13:43)
[2017-09-28] MEDS ORDERED: PROPOFOL IV EMULSION 10 MG/ML 20 ML VIAL ONE (13:43)
[2017-09-28] MEDS ORDERED: DEXAMETHASONE SOD INJ 4 MG/ML VIAL ONE (13:43)
[2017-09-28] MEDS ORDERED: ALBUTEROL HFA INHALER 8.5 GM INH ONE (13:43)
[2017-09-28] MEDS ORDERED: NEOSTIGMINE METHYLSULFATE 1 MG/ML 10ML VIAL ONE (13:43)
[2017-09-28] MEDS ORDERED: ONDANSETRON INJ 2 MG/ML 2 ML VIAL ONE (13:43)
[2017-09-28] MEDS ORDERED: LIDOCAINE HCL 2% 2 ML VIAL (20MG/ML) ONE (13:43)
[2017-09-28] MEDS ORDERED: PHENYLEPHRINE 100MCG/ML 5ML SYR ONE (13:43)
[2017-09-28] MEDS ORDERED: GLYCOPYRROLATE INJ 0.2 MG/ML VIAL ONE (13:43)
[2017-09-28] MEDS ORDERED: ROCURONIUM BROMIDE 10 MG/ML 5 ML VIAL ONE (13:56)
[2017-09-28] MEDS ORDERED: FLOSEAL HEMOSTATIC MATRIX 10ML TOP ONE (14:50)
--- NOTE | 2017-09-28 15:03 | [facility] Operative Report ---
Operative Report Operative Date Sep 28, 2017. Pre-Operative Diagnosis Lumbar Spinal Stenosis with Neurogenic Claudication Post-Operative Diagnosis Same as preoperative. Procedure(s) Performed 1. Removal of posterior segmental instrument Tatian L3-4 L4-5. #2 exploration of fusion L3-4 L4-5 per #3 lumbar decompression medial facetectomies foraminotomies L2-3. #4 posterior spinal fusion L2-3. #5 placement posterior segmental instrumentation L2-3 L3-4 L4-5. #6 interbody fusion L2-3 per #7 history of titanium 10 x 22 mm cage L2-3. #8 placement of local autograft in the posterior gutters. #9 placement InFUSE collagen sponge combined with master graft in the posterior gutters and ostial amp in the interbody space. Surgeon Dr. Marty Holm Captain/Check Airman Surgeon(s) Carmen Bucio PA-C Estimated Blood Loss 100ml Findings Severe lateral recess stenosis Specimens A.) Explanted Hardware - Spine Anesthesia Type General Description of Procedure Patient was met with preoperatively case discussed all questions addressed. After informed consent obtained patient was taken to the operative suite underwent intubation and placed in a prone position the Víctor table on top of the Juan M frame. All bony prominences were well-padded eyes inspected to ensure no external pressure placed upon the. This point the lumbar spine was prepped and draped in the normal sterile fashion. Sharp dissection with the assistance of Bovie cautery was exposing the lamina and transverse processes of L2 and the instrumentation L3-L4-L5 bilaterally. Then proceeded remove the hardware bilaterally. Did note some loosening of the L5 screws bilaterally. The bone fusion however appeared to be intact bilaterally. Then performed a complete laminectomy of L2 including bilateral medial facetectomies foraminotomies. Pedicle screws were then placed in L2 L3-L4-L5 bilaterally with the assistance of fluoroscopy the purposes vandana placed. Through a transforaminal approach and left complete discectomy was performed endplates created to subcortical bleeding bone. A 10 x 22 mm titanium cage filled with ostium bone graft tapped in position. The rods were then compressed locked in final position bilaterally. The transverse processes of L2 and L3 burred to subcortical bleeding bone. Infuse collagen sponge master graft local autograft was placed in the posterior gutters. Approximately 100 cc of Exparel injected in the musculature. 15 round ANNMARIE drain inserted. Incision was then closed with 1 Vicryl in the fascia 2-0 Vicryl subcutaneous and 4 Monocryl for fashion closure Steri-Strips sterile dressings placed. Patient will continue PACU stable condition. Please note Carmen Bucio was present throughout the entire procedure involved in patient positioning complex portions of the surgery and fashion closure. I attest to the content of the Intraoperative Record and any orders documented therein. Any exceptions are noted below.
--- NOTE | 2017-09-28 15:03 | DIAGNOSTIC IMAGING REPORT ---
LUMBAR SPINE 2 OR 3 VIEW CLINICAL HISTORY: 56 years-old Female presenting with L3-5 REMOVE HARDWARE/L2-3 DECOMPRESSION FUSION. TECHNIQUE: 4 fluoroscopic image(s) recorded as part of an intraoperative procedure. COMPARISON: 03/26/2016. FINDINGS/IMPRESSION: Posterior bilateral transpedicular screw and vandana fixation of L2-L5. L2-3 interbody spacer. Laminectomy defects of L2-L4. Please see surgical report for further details. Fluoroscopy dosage (mGy): 8.77. Fluoroscopy time: 11.2 seconds. Number or time of fluoroscopic spot images: 0. Electronically signed by: Nicolas Jon M.D. 09/28/2017 3:01 PM Dictated Date/Time: 09/28/2017 3:00 PM
[2017-09-28] MEDS ORDERED: DO NOT ADMINISTER PNEUMOCOCCAL VACCINE PRN (15:15)
[2017-09-28] MEDS ORDERED: ACETAMINOPHEN IV 100 ML IV PRN (15:15)
[2017-09-28] MEDS ORDERED: SOD PHOSPHATE/SOD BIPHOSPHATE ENEMA 132 ML BTL PR PRN (15:15)
[2017-09-28] MEDS ORDERED: NALOXONE HCL 0.4 MG/1 ML VIAL/CARP IV PRN (15:15)
[2017-09-28] MEDS ORDERED: BISACODYL 10 MG SUPP PR PRN (15:15)
[2017-09-28] MEDS ORDERED: OXAZEPAM 10MG CAP PO PRN (15:15)
[2017-09-28] MEDS ORDERED: FAMOTIDINE 20 MG TAB PO PRN (15:15)
[2017-09-28] MEDS ORDERED: DO NOT ADMINISTER FLU VACCINE PRN (15:15)
[2017-09-28] MEDS ORDERED: ALUMINUM/MAGNESIUM SUSP 30 ML UDC PO PRN (15:15)
[2017-09-28] MEDS ORDERED: hydrOXYzine HCL 25 MG TAB PO PRN (15:15)
[2017-09-28] MEDS ORDERED: METOCLOPRAMIDE HCL INJ 5 MG/ML 2 ML VIAL IV PRN (15:15)
[2017-09-28] MEDS ORDERED: PROMETHAZINE HCL INJ 12.5 MG in SODIUM CHLORIDE 0.9% 50ML 50 ML IV PRN (15:15)
[2017-09-28] MEDS ORDERED: ACETAMINOPHEN 500 MG TAB PO PRN (15:15)
[2017-09-28] MEDS ORDERED: MAGNESIUM HYDROXIDE SUSP 30 ML UDC PO PRN (15:15)
[2017-09-28] MEDS ORDERED: HYDROmorphone INJ 0.5 MG/0.5 ML SYR IV PRN (15:30)
[2017-09-28] MEDS ORDERED: HYDROmorphone INJ 0.5 MG/0.5 ML SYR ONE (15:35)
[2017-09-28] MEDS: LORAZEPAM INJ 0.5 MG in SYRINGE 0 ML IV PRN (16:28)
--- NOTE | 2017-09-28 16:42 | Anesthesiology Progress Note ---
Anesthesia Post Op Note Date & Time Sep 28, 2017 at 16:41 Vital Signs Vital Signs Past 12 Hours Date Time Temp Pulse Resp B/P (MAP) Pulse Ox O2 Delivery O2 Flow Rate FiO2 09/28/17 16:26 75 16 09/28/17 16:26 82 16 115/69 95 09/28/17 16:21 78 20 09/28/17 16:21 78 20 114/66 95 09/28/17 16:16 87 16 09/28/17 16:16 87 16 125/70 91 09/28/17 16:11 91 27 09/28/17 16:11 91 27 127/81 94 09/28/17 16:10 117/72 09/28/17 16:06 88 16 92 09/28/17 16:06 89 16 09/28/17 16:05 89 20 95 09/28/17 16:05 89 20 09/28/17 16:01 97/66 09/28/17 16:00 88 20 09/28/17 16:00 89 20 96 09/28/17 15:57 103/52 09/28/17 15:55 87 16 09/28/17 15:55 90 16 109/62 95 09/28/17 15:50 93 17 94 09/28/17 15:50 93 17 09/28/17 15:49 153/132 09/28/17 15:47 09/28/17 15:45 94 22 09/28/17 15:45 94 22 93 09/28/17 15:41 115/62 09/28/17 15:40 93 18 09/28/17 15:40 93 18 95 09/28/17 15:39 36.7 95 16 156/130 95 Oxymask 10 09/28/17 15:35 91 21 09/28/17 15:35 92 21 98 09/28/17 15:30 94 15 98 09/28/17 15:30 95 15 09/28/17 08:53 36.8 92 20 129/93 93 Room Air Notes Mental Status: alert / awake / arousable, participated in evaluation Pt Amnestic to Procedure: Yes Nausea / Vomiting: adequately controlled Pain: adequately controlled Airway Patency, RR, SpO2: stable & adequate BP & HR: stable & adequate Hydration State: stable & adequate Anesthetic Complications: no major complications apparent will send pt to floor with continuous pulse ox for now as she is sleeping when not being talked to
[2017-09-28] MEDS: OXYCODONE HCL IR 5 MG TAB (IMMEDIATE RELEASE) PO PRN ×2 (18:33→23:05)
[2017-09-28] MEDS: HYDROmorphone INJ 1 MG/ML SYR IV PRN (19:24)
[2017-09-28] MEDS: IPRATROPIUM BROMIDE/ALBUTEROL respimat INH INH SCH ×2 (19:25→20:46)
[2017-09-28] MEDS: CEFAZOLIN IV 2,000 MG in SYRINGE 0 ML IV SCH (20:18)
[2017-09-28] MEDS: VENLAFAXINE HCL XR 150 MG CAPXR PO SCH (20:46)
[2017-09-28] MEDS: TRAZODONE HCL 50 MG TAB PO SCH (20:47)
[2017-09-28] MEDS: hydrOXYzine HCL 25 MG TAB PO SCH (20:47)
[2017-09-28] MEDS: PRAVASTATIN SOD 10 MG TAB PO SCH (20:47)
[2017-09-28] MEDS: DOCUSATE SODIUM/SENNA 50/8.6MG TAB PO SCH (20:47)
[2017-09-28] MEDS: MIRTAZAPINE TAB 15 MG TAB PO SCH (20:47)
[2017-09-28] MEDS: SODIUM CHLORIDE 0.9% 1000ML 1,000 ML IV SCH (20:52)
[2017-09-29 00:15] VITALS: O2SAT 93
[2017-09-29 03:00] VITALS: BP 103/65; PULSE 85; TEMP 37.2; O2SAT 93
[2017-09-29] MEDS: OXYCODONE HCL IR 5 MG TAB (IMMEDIATE RELEASE) PO PRN ×4 (03:08→21:47)
[2017-09-29] MEDS: SODIUM CHLORIDE 0.9% 1000ML 1,000 ML IV SCH (03:12)
[2017-09-29] MEDS: CEFAZOLIN IV 2,000 MG in SYRINGE 0 ML IV SCH (03:50)
[2017-09-29] MEDS: LORAZEPAM INJ 0.5 MG in SYRINGE 0 ML IV PRN (05:52)
[2017-09-29 05:57] LABS: BASO % 0.1 %; BASO ABS # 0.01 K/uL (0-0.2); HEMATOCRIT 37.5 % (37-47); IG# 0.05 K/uL (0.00-0.02); LYMPH % 8.5 %; LYMPH ABS # 1.31 K/uL (1.2-3.4); MEAN CELL VOLUME 86.6 fL (80-100); MEAN CORPUSCULAR HEMOGLOBIN 27.7 pg (25-34); MEAN PLATELET VOLUME 9.2 fL (7.4-10.4); MONO % 8.2 %; MONO ABS # 1.26 K/uL (0.11-0.59); NEUT % 82.9 %; NEUT ABS # 12.75 K/uL (1.4-6.5); PLATELET COUNT 294 K/uL (130-400); RED CELL DISTRIBUTION WIDTH CV 13.8 % (11.5-14.5); RED CELL DISTRIBUTION WIDTH SD 44.2 fL (36.4-46.3); WHITE BLOOD COUNT 15.38 K/uL (4.8-10.8)
[2017-09-29 06:30] LABS: CALCIUM 8.7 mg/dl (8.5-10.1); CREATININE 0.73 mg/dl (0.60-1.20); POTASSIUM 4.3 mmol/L (3.5-5.1)
[2017-09-29 07:13] VITALS: BP 107/72; PULSE 79; TEMP 36.7; O2SAT 92
[2017-09-29] MEDS: IPRATROPIUM BROMIDE/ALBUTEROL respimat INH INH SCH ×4 (08:44→21:47)
[2017-09-29] MEDS: HYDROmorphone INJ 1 MG/ML SYR IV PRN ×2 (08:44→18:34)
[2017-09-29] MEDS: hydrOXYzine HCL 25 MG TAB PO SCH ×3 (08:45→21:48)
[2017-09-29] MEDS: PANTOprazole SOD 40 MG TAB PO SCH (08:45)
[2017-09-29] MEDS: FLUTICASONE PROPIONATE NA SPR 16 GM BTL NAE SCH (08:45)
[2017-09-29] MEDS: ASPIRIN 81 MG ECTAB PO SCH (08:45)
[2017-09-29] MEDS ORDERED: NURSING VERBAL MED ORDER ONE (11:30)
[2017-09-29 11:32] VITALS: BP 108/68; PULSE 82; TEMP 37; O2SAT 95
--- NOTE | 2017-09-29 11:47 | Progress Note ---
Progress Note Date of Service Sep 29, 2017. Progress Note Patient's back pain is controlled leg pain controlled. Vital signs stable. ANNMARIE drain decreasing probably. On exam she is good strength testing. Appears comfortable. Assessment status post lumbar decompression fusion per plan at this time we will add Zanaflex for pain control. Consult psychologist social for possible [facility] placement in the next few days.
[2017-09-29] MEDS: KETOROLAC TROMETHAMINE 30 MG/ML VIAL IV PRN ×2 (12:53→23:21)
--- NOTE | 2017-09-29 13:54 | Anesthesiology Progress Note ---
Anesthesia Post Op Note Date & Time Sep 29, 2017 at 13:53 Vital Signs Pain Intensity: 8.0 Vital Signs Past 12 Hours Date Time Temp Pulse Resp B/P (MAP) Pulse Ox O2 Delivery O2 Flow Rate FiO2 09/29/17 11:32 37.0 82 16 108/68 (81) 95 Room Air 09/29/17 07:20 Room Air 09/29/17 07:13 36.7 79 16 107/72 (84) 92 Room Air 2.0 09/29/17 03:00 37.2 85 16 103/65 (78) 93 Nasal Cannula 2.0 Notes Mental Status: alert / awake / arousable, participated in evaluation Pt Amnestic to Procedure: Yes Nausea / Vomiting: adequately controlled Pain: adequately controlled Airway Patency, RR, SpO2: stable & adequate BP & HR: stable & adequate Hydration State: stable & adequate Anesthetic Complications: no major complications apparent
[2017-09-29 15:28] VITALS: BP 121/67; PULSE 76; TEMP 36.8; O2SAT 91
[2017-09-29] MEDS: TRAZODONE HCL 50 MG TAB PO SCH (21:48)
[2017-09-29] MEDS: PRAVASTATIN SOD 10 MG TAB PO SCH (21:49)
[2017-09-29] MEDS: MIRTAZAPINE TAB 15 MG TAB PO SCH (21:49)
[2017-09-29] MEDS: VENLAFAXINE HCL XR 150 MG CAPXR PO SCH (21:49)
[2017-09-29] MEDS: DOCUSATE SODIUM/SENNA 50/8.6MG TAB PO SCH (21:50)
[2017-09-29 23:04] VITALS: BP 105/69; PULSE 60; TEMP 37; O2SAT 93
[2017-09-29] MEDS: LORAZEPAM 0.5 MG TAB PO PRN (23:20)
[2017-09-30] MEDS: HYDROmorphone INJ 1 MG/ML SYR IV PRN ×4 (01:38→17:16)
[2017-09-30] MEDS: OXYCODONE HCL IR 5 MG TAB (IMMEDIATE RELEASE) PO PRN ×3 (03:42→14:42)
[2017-09-30] MEDS: POLYETHYLENE (MIRALAX) 17 GM PACK PO SCH ×2 (05:22→12:23)
[2017-09-30] MEDS: KETOROLAC TROMETHAMINE 30 MG/ML VIAL IV PRN ×2 (05:22→11:32)
[2017-09-30 06:10] VITALS: BP 121/72; PULSE 71; TEMP 36.9; O2SAT 94
[2017-09-30] MEDS ORDERED: RXC5 PO (07:43)
--- NOTE | 2017-09-30 07:44 | Discharge Instructions ---
Discharge Instructions Date of Service Sep 30, 2017. Admission Reason for Admission: Lumbar Spinal Stenosis With Neurogenic Claudicatio Discharge Discharge Diagnosis / Problem: lumbar stenosis Discharge Goals Goal(s): Improve function Activity Recommendations Activity Limitations: per Instructions/Follow-up section . Instructions / Follow-Up Instructions / Follow-Up ACTIVITY RECOMMENDATIONS: SELF CARE INSTRUCTIONS AFTER THORACIC/LUMBAR FUSIONS 1. You may walk to your tolerance. It is good exercise for your legs and back. Expect some back and intermittent leg aches and pains. 2. You may perform "counter-top" level activities (make a sandwich, jackeline with a project, etc.). 3. No bending or lifting of more than 10 pounds or back twisting of any nature (roll like a log when turning in bed). 4. You may ride in a car for 20-30 minutes at a time. No driving until after your first visit with your doctor. 5. Frequent changes of position and restricting sitting to 30 minutes at a time will help limit the amount of back spasms and stiffness you may experience. 6. You may discontinue the use of ambulatory aids (cane, crutches, etc.) once your strength and confidence allow. 7. You may building contractor the shower and let water strike your incision when you arrive home at least once daily. Do not take a tub bath, sit in a hot tub or go into a swimming pool until after your first recheck in the office. SPECIAL CARE INSTRUCTIONS: VERY IMPORTANT TO READ AND REVIEW A. Your surgical incision has been closed with a cosmetic suture under the skin that will dissolve in about 6 weeks. In 14 days, you can use a pair of clean scissors and cut the suture that is left outside of the skin at the ends of your incision. 1. The small skin tapes can be removed 7 days after surgery if they have not fallen off by that point. 2. You may keep the wound open to air as much as possible to promote healing after post-op day number 5 unless told otherwise by your doctor. 3. If you think the wound looks like it is becoming infected (redness or worsening drainage) and/or you are experiencing fever, chill or worsening back pain and muscle spasms, contact the office so that we may evaluate you as soon as possible. B. Complications are uncommon, but please contact us if you have any signs or symptoms of: 1. wound infection (fever higher than 102.5 degrees F, redness, separation of wound, drainage, or increasing pain from the incision) 2. blood clots in legs (pain, swelling, redness and warmth in legs) 3. urinary tract infection (fever higher than 102.5 degrees F, burning upon urination or increased frequency of urination) 4. nerve problems (inability to walk on your toes or heels, numbness, loss of bowel or bladder control) 5. any other symptoms that concern you C. Please call the office at if you have any concerns or questions about your operation or recovery. D. No smoking! Smoking drastically decreases the chance of a solid fusion. E. Do not take any anti-inflammatory medications (Indocin, Advil, Motrin, Aspirin, Naprosyn, etc.) as these may inhibit the chance of a solid fusion. Tylenol is okay to take for pain. MANAGING PAIN AFTER SPINAL SURGERY 1. Narcotic medication is intended for short-term use and will be provided for surgical pain. Surgical pain usually lasts for a period of 4-6 weeks. Narcotic medication includes Percocet, Vicodin, Darvocet, Tylenol #3 or Lortab. 2. Longer-term pain is more appropriately treated with non-narcotic medication such as Tylenol ES. 3. Muscle spasm is not appropriately treated with narcotics. Muscle relaxers such as Soma, Flexeril or Skelaxin can be used along with Tylenol ES. 4. Remember that we all live with some "aches and pains". This is not unusual or uncommon after an injury or as we get older. a. Back pain is expected and may include muscle spasms for 4 to 6 weeks after surgery. The pain should gradually improve. If the pain worsens for no apparent reason, please contact the office. b. Intermittent leg pain may also be experienced and should not be concerned about unless it worsens for no apparent reason. If so, please contact the office. 5. We will provide appropriate medication within the normal guidelines of their prescribed use. We will also be very cautious and aware of potential abuse and extended duration of patients' medication needs. a. Pain medications are for your comfort and to assist with sleep and rest so that the tissue can heal. They are not provided in order to return to normal activity and should not be used through the day. To do so or worsening pain at night can result from ongoing tissue damage and development of tolerance to the prescribed medicine. 6. Please allow 2-3 days to process refills. Prescriptions will not be mailed but must be picked up at the office. FOLLOW UP VISIT: Keep your scheduled follow-up appointment. Any questions, please call the office at . Current Hospital Diet Patient's current hospital diet: Regular Diet Discharge Diet Recommended Diet: Regular Diet Procedures Procedures Performed: 1. Removal of posterior segmental instrument Tatian L3-4 L4-5. #2 exploration of fusion L3-4 L4-5 per #3 lumbar decompression medial facetectomies foraminotomies L2-3. #4 posterior spinal fusion L2-3. #5 placement posterior segmental instrumentation L2-3 L3-4 L4-5. #6 interbody fusion L2-3 per #7 history of titanium 10 x 22 mm cage L2-3. #8 placement of local autograft in the posterior gutters. #9 placement InFUSE collagen sponge combined with master graft in the posterior gutters and ostial amp in the interbody space. Pending Studies Studies pending at discharge: no Medical Emergencies . Who to Call and When: Medical Emergencies: If at any time you feel your situation is an emergency, please call 911 immediately. . Non-Emergent Contact Non-Emergency issues call your: Primary Care Provider . "Provider Documentation" section prepared by Marty Holm. .
[2017-09-30] MEDS: IPRATROPIUM BROMIDE/ALBUTEROL respimat INH INH SCH ×3 (08:55→17:17)
[2017-09-30] MEDS: hydrOXYzine HCL 25 MG TAB PO SCH ×2 (08:56→14:41)
[2017-09-30] MEDS: PANTOprazole SOD 40 MG TAB PO SCH (08:56)
[2017-09-30] MEDS: FLUTICASONE PROPIONATE NA SPR 16 GM BTL NAE SCH (08:56)
[2017-09-30] MEDS: ASPIRIN 81 MG ECTAB PO SCH (08:56)
[2017-09-30 09:56] VITALS: O2SAT 93
[2017-09-30 15:29] VITALS: BP 103/66; PULSE 71; TEMP 36.6; O2SAT 92
[2017-09-30] MEDS: LORAZEPAM 0.5 MG TAB PO PRN (16:06)
--- NOTE | 2017-09-30 16:42 | Discharge Summary ---
Orthopedic Discharge Summary Admission Date/Reason Sep 28, 2017 at 12:00 Lumbar Spinal Stenosis With Neurogenic Claudicatio. Discharge Date/Disposition Sep 30, 2017 Rehab Diagnosis Principal Diagnosis: Lumbar spinal stenosis Admission Physical Exam As per Admitting History & Physical. Hospital Course Patient underwent lumbar decompression fusion tolerated this well was taken to the orthopedic floor postoperatively. Postop day #1 she was up and amatory back and leg symptoms improving she progressed the postop day #2. She was accepted to rehab and subsequently discharged. Discharge orders and instructions can be found in the chart for further review. Discharge Instructions Please refer to the electronic Patient Visit Report (Discharge Instructions) for additional information.
== END 2017-09-30 17:29 | DRG 454 ==
LOC: C.ACU 08:31 → C.3E 12:00 → ENRESERV 16:08
PROVIDERS: ADMIT Orthopaedic Surgery Orthopaedic Surgery of the Spine; ATTEND Orthopaedic Surgery Orthopaedic Surgery of the Spine
PROC: 0ST20ZZ Resection of Lumbar Vertebral Disc, Open Approach (ICD-10-PCS; principal; 2017-09-28 10:15)
PROC: 3E0U0GB Introduction of Recombinant Bone Morphogenetic Protein into Joints, Open Approach (ICD-10-PCS; principal; 2017-09-28 10:15)
PROC: 0SG1071 Fusion of 2 or more Lumbar Vertebral Joints with Autologous Tissue Substitute, Posterior Approach, Posterior Column, Open Approach (ICD-10-PCS; principal; 2017-09-28 10:15)
PROC: 0SP004Z Removal of Internal Fixation Device from Lumbar Vertebral Joint, Open Approach (ICD-10-PCS; principal; 2017-09-28 10:15)
PROC: 0SG00AJ Fusion of Lumbar Vertebral Joint with Interbody Fusion Device, Posterior Approach, Anterior Column, Open Approach (ICD-10-PCS; principal; 2017-09-28 10:15)
DX: M48.062 Spinal stenosis, lumbar region with neurogenic claudication (principal); Z68.41 Body mass index [BMI] 40.0-44.9, adult; M19.90 Unspecified osteoarthritis, unspecified site; E78.5 Hyperlipidemia, unspecified; K21.9 Gastro-esophageal reflux disease without esophagitis; F41.9 Anxiety disorder, unspecified; F32.9 Major depressive disorder, single episode, unspecified; F17.210 Nicotine dependence, cigarettes, uncomplicated; E66.9 Obesity, unspecified; Z98.1 Arthrodesis status; Z79.82 Long term (current) use of aspirin; Z79.899 Other long term (current) drug therapy; Z88.8 Allergy status to other drugs, medicaments and biological substances